=== PATIENT | female | born 1950 | race Caucasian/White ===

== ENCOUNTER 2019-05-16 16:42 | Emergency (ER) | payer OTHER, MEDICARE ==
--- NOTE | 2019-05-16 16:48 | PDOC ---
History of Present Illness - General Chief Complaint: Pain, Acute Stated Complaint: RIGHT LEG PAIN/SWELLING Time Seen by Provider: 05/16/19 16:46 History Source: Patient Exam Limitations: No Limitations - History of Present Illness Initial Comments: 69 yo F with a hx of hypothyroidism, mild cognitive impairment, anxiety, depression, emphysema, and right hip replacement presents to the emergency department via referral from Dr. Ferrer for DVT rule out of the RLE. Per the patient, she states the swelling and redness began [address] Ferrer to the attending, she is concerned that there is a DVT in the right leg and requests for an US to rule out DVT. Currently, the patient is able to ambulate and states it is tender, but not painful at rest. The patient denies the following: hx of DVT/PE, recent surgeries, recent immobilizations, use of hormones, and recent travels. Denies the following: fever, chills, SOB, chest pain, headaches, N/V, abdominal pain, dysuria, hematuria, palpitations, lightheadedness, ears/nose/throat pain, diarrhea, constipation, hematochezia, melena, and weakness. Denies FND. Past History - Past Medical History Allergies/Adverse Reactions: Allergies Allergy/AdvReac Type Severity Reaction Status Date / Time Penicillins Allergy Verified 05/16/19 16:45 Home Medications: Ambulatory Orders Albuterol Sulfate Inhaler - [Ventolin Hfa Inhaler -] 2 inh PO TID 05/16/19 Citalopram Hydrobromide [Citalopram HBr] 20 mg PO DAILY 05/16/19 Levothyroxine Sodium [Tirosint] 112 mcg PO DAILY 05/16/19 Ropinirole HCl [Requip] 3 mg PO HS 05/16/19 Sulfamethoxazole/Trimethoprim [Bactrim Ds -] 1 tab PO BID #20 tablet 05/16/19 Review of Systems - Review of Systems Able to Perform ROS?: Yes Is the patient limited Danish proficient: No Constitutional: Yes: See HPI HEENTM: Yes: See HPI Respiratory: Yes: See HPI Cardiac (ROS): Yes: See HPI ABD/GI: Yes: See HPI : Yes: See HPI Musculoskeletal: No: Back Pain, Joint Pain, Joint Stiffness Integumentary: Yes: Erythema Neurological: Yes: See HPI *Physical Exam - Physical Exam General Appearance: Yes: Nourished, Appropriately Dressed. No: Apparent Distress, Obese HEENT: positive: EOMI, GRACIA, Normal Voice, Symmetrical, Pharynx Normal, Hearing Grossly Normal. negative: Pale Conjunctivae, Scleral Icterus (R), Scleral Icterus (L), Muffled/Hoarse voice, Pharyngeal Erythema, Tonsillar Exudate, Tonsillar Erythema, Excessive drooling Neck: positive: Trachea midline, Supple. negative: Tender, Lymphadenopathy (R), Lymphadenopathy (L) Respiratory/Chest: positive: Lungs Clear, Normal Breath Sounds. negative: Chest Tender, Respiratory Distress, Accessory Muscle Use Cardiovascular: positive: Regular Rhythm, Regular Rate, S1, S2. negative: Systolic Murmur Gastrointestinal/Abdominal: positive: Normal Bowel Sounds, Flat, Soft. negative: Tender Lymphatic: negative: Adenopathy Musculoskeletal: positive: Normal Inspection. negative: CVA Tenderness, Vertebral Tenderness Extremity: positive: Normal Capillary Refill, Normal Range of Motion, Tender (anterior distal tibia right), Other (warm to the touch and erythematous on the distal right tibia. no red streaks. no calf tenderness b/l. no tenderness in lateral and medial malleolus. ). negative: Normal Inspection Integumentary: positive: Normal Color, Dry, Warm Neurologic: positive: Alert, Normal Mood/Affect. negative: Fully Oriented (oriented to self only) Medical Decision Making - Medical Decision Making 69 yo F with a hx of hypothyroidism, mild cognitive impairment, anxiety, depression, emphysema, and right hip replacement presents to the emergency department via referral from Dr. Ferrer for DVT rule out of the RLE. Initial vitals: Initial Vital Signs Temp Pulse Resp BP Pulse Ox 97.1 F L 75 18 127/78 98 05/16/19 16:43 05/16/19 16:43 05/16/19 16:43 05/16/19 16:43 05/16/19 16:43 Work up: patient presents to the emergency department for the evaluation of right lower extremity swelling and erythema ddx: DVT vs cellulitis. Denies trauma or falls, unlikely to be ankle fracture with no tenderness in the ankle noted Will order US to rule out DVT US negative for DVT Will treat the patient for cellulitis with bactrim due to unknown response to PCN allergy. Discharge - Discharge Information Problems reviewed: Yes Clinical Impression/Diagnosis: Cellulitis Disposition: HOME - Admission No - Additional Discharge Information Prescriptions: Sulfamethoxazole/Trimethoprim [Bactrim Ds -] 1 tab PO BID #20 tablet - Follow up/Referral Referrals: Nalini Ferrer MD [Primary Care Provider] - - Patient Discharge Instructions Patient Printed Discharge Instructions: DI for Cellulitis -- Adult Additional Instructions: You were seen in the emergency department for the evaluation of your swollen leg. You do not have a blood clot in your leg, but likely a skin infection on the surface. Please take the antibiotics as prescribed and follow up with your primary medical doctor within 1 week after discharge for follow up care and management. Please return to the emergency department if you have worsening symptoms or new concerning symptoms. Thank you. - Post Discharge Activity
[2019-05-16 16:52] VITALS: BP 127/78; PULSE 75; TEMP 97.1; BMI 23.1
--- NOTE | 2019-05-16 17:22 | PDOC ---
Attending Attestation - Resident Resident Name: Bradley Ross - HPI HPI: 05/16/19 17:28 Pt presents to the ED complaining of a one day history of RLE pain and swelling. Denies fever. SEnt by Dr. Ferrer for rule out DVT. - Physicial Exam PE: 05/16/19 17:42 Agree with resident exam. Patient is alert and oriented and in no acute distress. RLE+mild erythema and edema centered around the ankle. + mild tenderness. - Medical Decision Making 05/16/19 17:59 PT presents to the eD complaining of RLE pain and tenderness for one day. Sent to the ED for r/o DVT. Differential also includes cellulitis. Will check US to rule out DVT, discharge with antibiotics if negative.
[2019-05-16] MEDS ORDERED: SULFAMETHOXAZOLE/TRIMETHOPRIM 800MG/160MG D.S. TABLET PO ONE (18:11)
[2019-05-16] MEDS ORDERED: SULFAMETHOXAZOLE/TRIMETHOPRIM 800MG/160MG D.S. TABLET ONE (18:14)
== END 2019-05-16 19:16 | disposition home or self-care (01) ==
LOC: FER 16:42
DX: L03.115 Cellulitis of right lower limb (principal); Z88.0 Allergy status to penicillin; E03.9 Hypothyroidism, unspecified; G31.84 Mild cognitive impairment of uncertain or unknown etiology; F41.8 Other specified anxiety disorders; J43.9 Emphysema, unspecified; Z96.641 Presence of right artificial hip joint
CPT/HCPCS: 93971-TC; 99284-25